=== PATIENT | male | born 1950 | race Caucasian/White ===

== ENCOUNTER 2018-08-03 08:59 | Day surgery (SDC) | payer MEDICARE, BC ==
[2018-08-03] MEDS ORDERED: PROPOFOL 10 MG/ML VIAL IV ONE (09:00)
[2018-08-03] MEDS ORDERED: LIDOCAINE 2% MDV (20MG/ML) 20ML VIAL IV ONE (09:00)
--- NOTE | 2018-08-04 08:00 | Operative Note ---
DATE OF SURGERY: 08/03/2018 OPERATION: Screening COLONOSCOPY. PREOPERATIVE DIAGNOSIS: Colon cancer screening, average risk. POSTOPERATIVE DIAGNOSIS: Mild sigmoid diverticulosis, otherwise normal exam. PROCEDURE: After informed consent was obtained from the patient, he was placed in the left lateral decubitus position in the endoscopy suite, sedated and monitored by the department of anesthesia. Digital rectal exam was unremarkable. A well-lubricated [id number] colonoscope was inserted into the rectum and advanced to the cecum. Preparation quality was excellent. The cecum, cecal bulb, ascending colon, transverse colon, descending colon, sigmoid colon, and rectum were free of inflammatory changes, mass lesions, or polyps. The sigmoid colon demonstrated mild diverticular changes. No inflammation was noted. The rectum was unremarkable in forward and in J-turn views. The endoscope was straightened, the rectal ampulla deflated, and the endoscope was removed. RECOMMENDATIONS: I would suggest the patient follow a high-fiber diet. I would recommend a repeat colonoscopy in 10 years or sooner should symptoms warrant. As always, thank you for allowing me to participate in the healthcare of your patients. CC: NATIVIDAD PANDEY MD, FACP [facility]
== END 2018-08-03 10:45 | disposition home or self-care (01) ==
LOC: HOP 08:59
PROVIDERS: ATTEND Internal Medicine Gastroenterology
DX: Z12.11 Encounter for screening for malignant neoplasm of colon (principal); K57.30 Diverticulosis of large intestine without perforation or abscess without bleeding; I10 Essential (primary) hypertension; E78.00 Pure hypercholesterolemia, unspecified; E11.9 Type 2 diabetes mellitus without complications
CPT/HCPCS: 00812; G0121